=== PATIENT | male | born 1950 | race Caucasian/White ===

== ENCOUNTER 2016-10-08 10:38 | Emergency (ER) | payer MEDICARE, OTHER ==
[~2016-10-08] VITALS: Ht 172.7 cm; Wt 98.5 kg
[2016-10-08 10:41] VITALS: BP 146/96; PULSE 70; RESP 16; TEMP 97.8; O2SAT 97
[2016-10-08] MEDS ORDERED: SODIUM CHLOR 0.9% 1000 ML INJ 1,000 ML IV SCH (10:51)
[2016-10-08] MEDS ORDERED: SODIUM CHLORIDE 0.9% FLUSH 10 ML FLUSH IV FLUSH PRN (11:00)
--- NOTE | 2016-10-08 11:00 | PD ---
HPI Chief Complaint: Abdominal Pain Time Seen by Provider: 10:44 Travel History International Travel<30 days: No Contact w/Intl Traveler<30days: No Traveled to known affect area: No History of Present Illness HPI The patient is a 66-year-old male who presents emergency department for abdominal pain at 3 days' duration. The patient complains of lower abdominal pain that radiates to the low back for last 3 days with mild nausea but no vomiting. He also complains of constipation for the last 3 days, states his last bowel movement was 3 days ago, was described as "hard rabbit pellets " . The patient was evaluated at an urgent care earlier today and was referred to the emergency department for CT the abdomen and pelvis to rule out obstruction. The patient denies any previous history of abdominal obstructions , previous abdominal surgeries, or accompanying symptoms such as fever, chills, or sweats. He does note mild nausea try to vomit to alleviate his symptoms, however, was unable to vomit. He denies any diarrhea or the passage of loose stool in the last several days. Symptoms are moderate, there are no current alleviating or exacerbating factors. PFSH Past Medical History Narrative Medical GERD Past Surgical History Narrative Surgical Patient denies previous abdominal surgeries Social History Tobacco Use: No Allergies-Medications (Allergen,Severity, Reaction): Coded Allergies: No Known Allergies (Unverified , 10/08/16) Reported Meds & Prescriptions Reported Meds & Active Scripts Active Reported Nexium (Esomeprazole DR) 20 Mg Capdr 20 Mg PO DAILY Review of Systems Except as stated in HPI: all other systems reviewed are Neg General / Constitutional: No: Fever Cardiovascular: No: Chest Pain or Discomfort Respiratory: No: Shortness of Breath Gastrointestinal: Positive: Nausea, Abdominal Pain, Constipation, No: Vomiting , Diarrhea Genitourinary: No: Dysuria Physical Exam Narrative GENERAL: Awake, alert, pleasant 66-year-old male who appears his stated age and is in no acute respiratory distress. SKIN: Focused skin assessment warm/dry. HEAD: Atraumatic. Normocephalic. EYES: Pupils equal and round. No scleral icterus. No injection or drainage. ENT: No nasal bleeding or discharge. Mucous membranes pink and moist. NECK: Trachea midline. No JVD. CARDIOVASCULAR: Regular rate and rhythm. No murmur appreciated. RESPIRATORY: No accessory muscle use. Clear to auscultation. Breath sounds equal bilaterally. GASTROINTESTINAL: Abdomen soft, mild epigastric tenderness. No rebound tenderness, guarding, rigidity. Rectal: No gross blood. No fecal impaction noted. MUSCULOSKELETAL: No obvious deformities. No clubbing. No cyanosis. No edema. NEUROLOGICAL: Awake and alert. No obvious cranial nerve deficits. Motor grossly within normal limits. Normal speech. PSYCHIATRIC: Appropriate mood and affect; insight and judgment normal. Data Data Last Documented VS Vital Signs Date Time Temp Pulse Resp B/P Pulse Ox O2 Delivery O2 Flow Rate FiO2 10/08/16 11:29 98 10/08/16 10:41 97.8 70 16 146/96 Orders Complete Blood Count With Diff (10/08/16 10:51) Comprehensive Metabolic Panel (10/08/16 10:51) Lipase (10/08/16 10:51) Urinalysis - C+S If Indicated (10/08/16 10:51) Ct Abd/Pel W/O Iv Contrast (10/08/16 10:51) Iv Access Insert/Monitor (10/08/16 10:51) Ecg Monitoring (10/08/16 10:51) Oximetry (10/08/16 10:51) Sodium Chlor 0.9% 1000 Ml Inj (Ns 1000 M (10/08/16 10:51) Sodium Chloride 0.9% Flush (Ns Flush) (10/08/16 11:00) Labs Laboratory Tests Test 10/08/16 10/08/16 10:58 11:04 White Blood Count 12.0 TH/MM3 Red Blood Count 5.81 MIL/MM3 Hemoglobin 17.1 GM/DL Hematocrit 51.2 % Mean Corpuscular Volume 88.0 FL Mean Corpuscular Hemoglobin 29.4 PG Mean Corpuscular Hemoglobin 33.4 % Concent Red Cell Distribution Width 12.3 % Platelet Count 176 TH/MM3 Mean Platelet Volume 8.9 FL Neutrophils (%) (Auto) 69.5 % Lymphocytes (%) (Auto) 17.5 % Monocytes (%) (Auto) 9.5 % Eosinophils (%) (Auto) 0.7 % Basophils (%) (Auto) 2.8 % Neutrophils # (Auto) 8.4 TH/MM3 Lymphocytes # (Auto) 2.1 TH/MM3 Monocytes # (Auto) 1.1 TH/MM3 Eosinophils # (Auto) 0.1 TH/MM3 Basophils # (Auto) 0.3 TH/MM3 CBC Comment DIFF FINAL Differential Comment Sodium Level 139 MEQ/L Potassium Level 3.8 MEQ/L Chloride Level 103 MEQ/L Carbon Dioxide Level 29.5 MEQ/L Anion Gap 7 MEQ/L Blood Urea Nitrogen 11 MG/DL Creatinine 1.10 MG/DL Estimat Glomerular Filtration 67 ML/MIN Rate Random Glucose 102 MG/DL Calcium Level 9.5 MG/DL Total Bilirubin 2.5 MG/DL Aspartate Amino Transf 22 U/L (AST/SGOT) Alanine Aminotransferase 24 U/L (ALT/SGPT) Alkaline Phosphatase 72 U/L Total Protein 7.6 GM/DL Albumin 3.5 GM/DL Lipase 94 U/L Urine Collection Type CLEAN CATCH Urine Color YELLOW Urine Turbidity CLEAR Urine pH 6.0 Urine Specific [place] 1.028 Urine Protein 30 mg/dL Urine Glucose (UA) NEG mg/dL Urine Ketones TRACE mg/dL Urine Occult Blood NEG Urine Nitrite NEG Urine Bilirubin NEG Urine Leukocyte Esterase NEG Urine RBC 0-3 /hpf Urine WBC 0-2 /hpf Urine Squamous Epithelial 0-5 /hpf Cells Urine Mucus FEW /lpf Microscopic Urinalysis Comment CULT NOT INDICATED Urine Collection Time 11:[address] [facility] Medical Decision Making Medical Screen Exam Complete: Yes Emergency Medical Condition: Yes Medical Record Reviewed: Yes Interpretation(s) CT of the abdomen and pelvis reveals a lower density within the head and body of the pancreas suggesting some fatty infiltration. The margins of the pancreas are also times indistinct raise possibility pancreatitis. No distinct fluid collection is identified. Laboratory Tests Test 10/08/16 10/08/16 10:58 11:04 White Blood Count 12.0 TH/MM3 Red Blood Count 5.81 MIL/MM3 Hemoglobin 17.1 GM/DL Hematocrit 51.2 % Mean Corpuscular Volume 88.0 FL Mean Corpuscular Hemoglobin 29.4 PG Mean Corpuscular Hemoglobin 33.4 % Concent Red Cell Distribution Width 12.3 % Platelet Count 176 TH/MM3 Mean Platelet Volume 8.9 FL Neutrophils (%) (Auto) 69.5 % Lymphocytes (%) (Auto) 17.5 % Monocytes (%) (Auto) 9.5 % Eosinophils (%) (Auto) 0.7 % Basophils (%) (Auto) 2.8 % Neutrophils # (Auto) 8.4 TH/MM3 Lymphocytes # (Auto) 2.1 TH/MM3 Monocytes # (Auto) 1.1 TH/MM3 Eosinophils # (Auto) 0.1 TH/MM3 Basophils # (Auto) 0.3 TH/MM3 CBC Comment DIFF FINAL Differential Comment Sodium Level 139 MEQ/L Potassium Level 3.8 MEQ/L Chloride Level 103 MEQ/L Carbon Dioxide Level 29.5 MEQ/L Anion Gap 7 MEQ/L Blood Urea Nitrogen 11 MG/DL Creatinine 1.10 MG/DL Estimat Glomerular Filtration 67 ML/MIN Rate Random Glucose 102 MG/DL Calcium Level 9.5 MG/DL Total Bilirubin 2.5 MG/DL Aspartate Amino Transf 22 U/L (AST/SGOT) Alanine Aminotransferase 24 U/L (ALT/SGPT) Alkaline Phosphatase 72 U/L Total Protein 7.6 GM/DL Albumin 3.5 GM/DL Lipase 94 U/L Urine Collection Type CLEAN CATCH Urine Color YELLOW Urine Turbidity CLEAR Urine pH 6.0 Urine Specific [place] 1.028 Urine Protein 30 mg/dL Urine Glucose (UA) NEG mg/dL Urine Ketones TRACE mg/dL Urine Occult Blood NEG Urine Nitrite NEG Urine Bilirubin NEG Urine Leukocyte Esterase NEG Urine RBC 0-3 /hpf Urine WBC 0-2 /hpf Urine Squamous Epithelial 0-5 /hpf Cells Urine Mucus FEW /lpf Microscopic Urinalysis Comment CULT NOT INDICATED Urine Collection Time 11:04 Differential Diagnosis Differential diagnosis includes constipation, ileus, partial small bowel obstruction, large bowel obstruction, volvulus, colitis. Narrative Course IV was established, labs were drawn and sent, and the patient was placed on cardiac telemetry monitoring and continuous pulse oximetry monitoring. The patient was administered IV fluids. Noncontrast CT of the abdomen and pelvis was ordered. White count was elevated 4.0, however, hemoglobin was elevated at 17, may be secondary to hemoconcentration of mild dehydration. UA did reveal trace ketones. LFTs are unremarkable except for bilirubin to 2.5, however, LFTs and alkaline phosphatase are unremarkable. CT reveals a lower density within the head and body of the pancreas suggesting some fatty infiltration and margins of the pancreas are also times indistinct, raising the possibility of pancreatitis. However, the patient's lipase level is unremarkable, since his been ongoing for 3 days. The patient will be treated for constipation with GoLYTELY, is advised to follow-up with his primary physician. He will be provided a copy of his CT results and lab results at discharge. Diagnosis Primary Impression: Abdominal pain Qualified Code: R10.84 - Generalized abdominal pain Additional Impression: Constipation Qualified Code: K59.00 - Constipation, unspecified constipation type Patient Instructions: General Instructions Additional Instructions: Medications as directed. Clear liquid diet and advance as tolerated. Follow- up with your primary physician. Please provide the patient a copy of his CT results and lab results at discharge. Med/Other Pt SpecificInfo: Prescription(s) given Scripts Peg-Electrolytes (Golytely 236 gm)4,000 Ml Soln4,000 Ml PO ONCE #1 CONTAINER Ref 0 Prov:Elijah Mireles MD 10/08/16 Disposition: DISCHARGE HOME Condition: Stable Elijah Mireles MD Oct 08, 2016 11:00
[2016-10-08 11:06] LABS: AUTOMATED NEUTROPHIL # 8.4 TH/MM3 (1.8-7.7); BASOPHIL # 0.3 TH/MM3 (0-0.2); BASOPHIL % 2.8 % (0.0-2.0); EOSINOPHIL # 0.1 TH/MM3 (0-0.4); EOSINOPHIL % 0.7 % (0.0-4.0); HEMATOCRIT 51.2 % (39.0-51.0); HEMO FLAGS DIFF FINAL; LYMPH % 17.5 % (9.0-44.0); LYMPHOCYTE # 2.1 TH/MM3 (1.0-4.8); MEAN CORPUSCULAR HEMOGLOBIN 29.4 PG (27.0-34.0); MEAN CORPUSCULAR HGB CONC 33.4 % (32.0-36.0); MONO % 9.5 % (0.0-8.0); NEUT % 69.5 % (16.0-70.0); PLATELET COUNT 176 TH/MM3 (150-450); RED BLOOD COUNT 5.81 MIL/MM3 (4.50-5.90); RED CELL DISTRIBUTION WIDTH 12.3 % (11.6-17.2)
[2016-10-08] MEDS ORDERED: NEXI20CA PO (11:09)
[2016-10-08 11:14] LABS: CHLORIDE 103 MEQ/L (98-107); POTASSIUM 3.8 MEQ/L (3.5-5.1); SODIUM (NA) 139 MEQ/L (136-145)
[2016-10-08 11:15] LABS: BLOOD, URINE NEG (NEG); GLUCOSE,URINE NEG (NEG); KETONE, URINE TRACE mg/dL (NEG); NITRITE,URINE NEG (NEG)
[2016-10-08 11:19] LABS: ANION GAP 7 MEQ/L (5-15); BICARBONATE 29.5 MEQ/L (21.0-32.0); BLOOD UREA NITROGEN 11 MG/DL (7-18)
[2016-10-08 11:22] LABS: ALT (GPT) 24 U/L (12-78); AST (GOT) 22 U/L (15-37); GLOMERULAR FILTRATION RATE 67 ML/MIN (>89)
[2016-10-08 11:23] LABS: METHOD OF COLLECTION CLEAN CATCH; MUCUS URINE FEW /lpf (OCC); URINE COLOR YELLOW (YELLW/STRAW)
[2016-10-08 11:24] LABS: COMMENT (UR) CULT NOT INDICATED; CULTURE IF INDICATED CULT NOT INDICATED; RBC, URINE 0-3 /hpf (0-3); SQUAMOUS EPITHELIAL CELL URINE 0-5 /hpf (0-5); WBC, URINE 0-2 /hpf (0-5)
[2016-10-08 11:24] LABS: TOTAL BILIRUBIN ADULT 2.5 MG/DL (0.2-1.0)
[2016-10-08 11:25] LABS: ALKALINE PHOSPHATASE 72 U/L (45-117)
[2016-10-08 11:29] VITALS: O2SAT 98
--- NOTE | 2016-10-08 11:31 | RADRPT ---
EXAM DATE/TIME: 10/08/2016 11:05 [facility] COMPARISON: No previous studies available for comparison. INDICATIONS : Abdominal pain radiating to lower back and constipation. ORAL CONTRAST: No oral contrast ingested. RADIATION DOSE: 18.60 CTDIvol (mGy) MEDICAL HISTORY : None SURGICAL HISTORY : None. ENCOUNTER: Initial ACUITY: 4 - 6 days PAIN SCALE: 3/10 LOCATION: lower quadrant TECHNIQUE: Volumetric scanning of the abdomen and pelvis was performed. Using automated exposure control and ad justment of the mA and/or kV according to patient size, radiation dose was kept as low as reasonably achievable to obtain optimal diagnostic quality images. DICOM format image data is available electro nically for review and comparison. FINDINGS: LOWER LUNGS: The visualized lower lungs are clear. Minimal scarring both lower lobes. LIVER: Homogeneously lower density with some minimal fatty sparing around the rene hepatis without lesion. There is no dilation of the biliary tree. No calcified gallstones.SPLEEN: Normal size without lesion. PANCREAS: There is a lower density within the head and body of the pancreas suggesting some fatty infiltration. The margins of the pancreas are also times indistinct raise possibility of pancreatitis. No distinct fluid collection is identified KIDNEYS: Normal in size and shape. There is no mass, stone, or hydronephrosis. ADRENAL GLANDS: Within normal limits. VASCULAR: There is no aortic aneurysm. BOWEL/MESENTERY: Sigmoid diverticulosis. The stomach, small bowel, and colon demonstrate no acute abnormality. There is no free intraperitoneal air or fluid. ABDOMINAL WALL: Within normal limits. RETROPERITONEUM: There is no lymphadenopathy. BLADDER: No wall thickening or mass. REPRODUCTIVE: Within normal limits. INGUINAL: There is no lymphadenopathy or hernia. MUSCULOSKELETAL: Within normal limits for patient age. CONCLUSION: There is a lower density within the head and body of the pancreas suggesting some fatty infiltration. The margins of the pancreas are also times indistinct raise possibility of pancreatitis. No distinct fluid collection is identified. Artemio Garcia MD on October 08, 2016 at 11:26 Board Certified Radiologist. This report was verified electronically.
[2016-10-08] MEDS ORDERED: COLY4000S PO (11:36)
== END 2016-10-08 11:54 | disposition home or self-care (01) ==
LOC: PHED 10:38
DX: R10.84 Generalized abdominal pain (principal); K59.00 Constipation, unspecified; R11.0 Nausea; D72.829 Elevated white blood cell count, unspecified; Z87.19 Personal history of other diseases of the digestive system
CPT/HCPCS: 74176; 80053; 81001; 83690; 85025; 99284; J7030